=== PATIENT | female | born 1965 | race Caucasian/White ===

== ENCOUNTER 2018-11-06 20:21 | Emergency (ER) | payer OTHER ==
--- NOTE | 2018-11-06 20:47 | PDOC ---
Rapid Medical Evaluation Chief Complaint: Pain Time Seen by Provider: 11/06/18 20:44 Medical Evaluation: Allergies Allergy/AdvReac Type Severity Reaction Status Date / Time No Known Drug Allergies Allergy Verified 06/19/16 16:25 Fish Containing Products AdvReac Intermediate Rash Verified 06/19/16 16:25 11/06/18 20:45 I performed a brief in person evaluation. CC: abdominal pain HPI: Pt is a 53 Yo female with a hx of hiatal hernia and now she has abdominal pain. Pt has had a cholecystectomy. Pt denies N/V however admits to excessive "burping." Pt admits to normal BM PE: Skin: Clear Lungs: Clear Heart: RRR Abd: Pain upon palpation to the epigastric area. MS: Moves all extremities without difficulty Neuro: Alert Psych: Appropriate affect Abdominal protocol Pt will go to [facility] for further evaluation. Discharge Disposition - Diagnosis Abdominal pain Qualifiers: Abdominal location: generalized Qualified Code(s): R10.84 - Generalized abdominal pain - Referrals - Patient Instructions - Post Discharge Activity
[2018-11-06 20:51] VITALS: BP 151/82; PULSE 69; TEMP 98.1; BMI 30.2
[2018-11-06 21:31] LABS: BASO % 0.6 % (0-2.0); EOS % 2.3 % (0-4.5); HEMATOCRIT 40.1 % (32.4-45.2); HEMOGLOBIN 13.9 GM/dL (10.7-15.3); LYMPH % 46.9 % (8-40); MCH 29.8 pg (25.7-33.7); MCHC 34.7 g/dl (32.0-36.0); MEAN CELL VOLUME 85.8 fl (80-96); MEAN PLT VOLUME 7.7 fl (7.5-11.1); MONO % 9.7 % (3.8-10.2); NEUT % 40.5 % (42.8-82.8); PLATELET COUNT 344 K/MM3 (134-434); RBC 4.67 M/mm3 (3.60-5.2); RDW 12.7 % (11.6-15.6)
[2018-11-06] MEDS ORDERED: MAG HYDROX/AL HYDROX/SIMETH 30 ML UNIT-DOSE CUP PO ONE (21:36)
[2018-11-06] MEDS ORDERED: FAMOTIDINE 20 MG/50 ML IVPB 20 MG/50 ML MG IVPB ONE (21:36)
[2018-11-06 21:42] LABS: ALBUMIN 4.3 g/dl (3.4-5.0); ALK PHOS 122 U/L (45-117); ANION GAP 7 MMOL/L (8-16); BILIRUBIN,TOTAL 0.2 mg/dL (0.2-1); BLOOD UREA NITROGEN 11 mg/dL (7-18); CHLORIDE 106 mmol/L (98-107); CO2 28 mmol/L (21-32); CREATININE 0.8 mg/dL (0.55-1.3); GLUCOSE,RANDOM 105 mg/dL (74-106); LIPASE 307 U/L (73-393); SGOT/AST 17 U/L (15-37); SGPT/ALT 24 U/L (13-61); SODIUM 141 mmol/L (136-145); TOT PROT 7.6 g/dl (6.4-8.2)
--- NOTE | 2018-11-06 21:54 | PDOC ---
History of Present Illness - General History Source: Patient Exam Limitations: No Limitations - History of Present Illness Initial Comments: 11/06/18 22:17 The patient is a 53 year old female, with a significant past medical history of GERD, hiatal hernia, HTN, anemia, and kidney stones, who presents to the emergency department with, 6 days of intermittent epigastric discomfort radiating to just under her left breast with associated nausea without emesis. She notes similar episodes in the past due to her GERD. She denies recent fevers, chills, headache or dizziness. She denies recent vomit , diarrhea or constipation. She denies recent dysuria, frequency, urgency or hematuria. She denies recent chest pain or shortness of breath. Allergies: Fish Past surgical history: Cholecystectomy and tonsillectomy Social history: Occasional alcohol usage. Nonsmoker. Denies recreational drug use. Primary Care Physician: Dr. Pardo <Jona Diamond - Last Filed: 11/06/18 22:17> <Shyla Rousseau - Last Filed: 11/06/18 23:42> - General Chief Complaint: Pain Stated Complaint: ABDOMINAL PAIN Time Seen by Provider: 11/06/18 20:44 Past History <Jona Diamond - Last Filed: 11/06/18 22:17> - Past Medical History Anemia: Yes Asthma: Yes Cancer: No Cardiac Disorders: No CVA: No COPD: No CHF: No Dementia: No Diabetes: No GI Disorders: No Disorders: Yes (hx kidney stones, hernia) HTN: Yes Hypercholesterolemia: No Liver Disease: No Seizures: No Thyroid Disease: No - Surgical History Abdominal Surgery: No Appendectomy: No Cardiac Surgery: No Cholecystectomy: Yes GI Surgery: (Bladder Sx. April) Lung Surgery: No Neurologic Surgery: No Orthopedic Surgery: No - Suicide/Smoking/Psychosocial Hx Smoking History: Never smoked Have you smoked in the past 12 months: No Information on smoking cessation initiated: No Hx Alcohol Use: No Drug/Substance Use Hx: No Substance Use Type: None Hx Substance Use Treatment: No <Shyla Rousseau - Last Filed: 11/06/18 23:42> - Past Medical History Allergies/Adverse Reactions: Allergies Allergy/AdvReac Type Severity Reaction Status Date / Time No Known Drug Allergies Allergy Verified 11/06/18 20:51 Fish Containing Products AdvReac Intermediate Rash Verified 11/06/18 20:51 Home Medications: Ambulatory Orders Losartan Potassium [Cozaar -] 50 mg PO DAILY 05/10/16 Metoprolol Tartrate 25 mg PO BID 05/10/16 Acetaminophen [Tylenol] 650 mg PO Q4H PRN 06/19/16 Review of Systems - Review of Systems Able to Perform ROS?: Yes Comments:: 11/06/18 22:18 CONSTITUTIONAL: Absent: fever, no chills, no fatigue EYES: Absent: visual changes ENT: Absent: ear pain, no sore throat CARDIOVASCULAR: Absent: chest pain, no palpitations RESPIRATORY: Absent: cough, no SOB GI: Present: Nausea. Epigastric pain. Absent: no vomiting, no constipation, no diarrhea GENITOURINARY: Absent: dysuria, no frequency, no hematuria MUSKULOSKELETAL: Absent: back pain, no arthralgia, no myalgia SKIN: Absent: rash NEURO: Absent: headache All Other Systems: Reviewed and Negative <Jona Diamond - Last Filed: 11/06/18 22:17> *Physical Exam - Vital Signs Last Vital Signs Temp Pulse Resp BP Pulse Ox 98.1 F 69 18 151/82 100 11/06/18 20:46 11/06/18 20:46 11/06/18 20:46 11/06/18 20:46 11/06/18 20:46 - Physical Exam Comments: 11/06/18 22:18 GENERAL: Well-appearing, well-nourished. No apparent distress. HEENT: Normocephalic, atraumatic. PERRL, EOM intact. CARDIOVASCULAR: Normal S1, S2. Regular rate and rhythm. PULMONARY: Clear to auscultation bilaterally. ABDOMEN: Soft, non-distended, non-tender. EXTREMITIES: Normal ROM in all four extremities. No gross deformities. SKIN: Warm, dry. No rash NEUROLOGICAL: No focal neurological deficits. <Jona Diamond - Last Filed: 11/06/18 22:17> - Vital Signs Last Vital Signs Temp Pulse Resp BP Pulse Ox 98.1 F 69 18 151/82 100 11/06/18 20:46 11/06/18 20:46 11/06/18 20:46 11/06/18 20:46 11/06/18 20:46 <Shyla Rousseau - Last Filed: 11/06/18 23:42> Moderate Sedation - Procedure Monitoring Vital Signs: Procedure Monitoring Vital Signs Temperature 98.1 F 11/06/18 20:46 Pulse Rate 69 11/06/18 20:46 Respiratory Rate 18 11/06/18 20:46 Blood Pressure 151/82 11/06/18 20:46 O2 Sat by Pulse Oximetry (%) 100 11/06/18 20:46 <Jona Diamond - Last Filed: 11/06/18 22:17> - Procedure Monitoring Vital Signs: Procedure Monitoring Vital Signs Temperature 98.1 F 11/06/18 20:46 Pulse Rate 69 11/06/18 20:46 Respiratory Rate 18 11/06/18 20:46 Blood Pressure 151/82 11/06/18 20:46 O2 Sat by Pulse Oximetry (%) 100 11/06/18 20:46 <Shyla Rousseau - Last Filed: 11/06/18 23:42> ED Treatment Course - LABORATORY CBC & Chemistry Diagram: 11/06/18 21:11 11/06/18 21:11 - ADDITIONAL ORDERS Additional order review: Laboratory Results 11/06/18 11/06/18 21:11 21:11 Sodium 141 Potassium 4.0 Chloride 106 Carbon Dioxide 28 Anion Gap 7 L BUN 11 Creatinine 0.8 Creat Clearance w eGFR > 60 Random Glucose 105 Calcium 9.0 Total Bilirubin 0.2 AST 17 ALT 24 Alkaline Phosphatase 122 H Creatine Kinase 132 Troponin I < 0.02 Total Protein 7.6 Albumin 4.3 Lipase 307 11/06/18 21:11 RBC 4.67 MCV 85.8 MCHC 34.7 RDW 12.7 MPV 7.7 Neutrophils % 40.5 L Lymphocytes % 46.9 H Monocytes % 9.7 Eosinophils % 2.3 Basophils % 0.6 <Jona Diamond - Last Filed: 11/06/18 22:17> - LABORATORY CBC & Chemistry Diagram: 11/06/18 21:11 11/06/18 21:11 - ADDITIONAL ORDERS Additional order review: Laboratory Results 11/06/18 11/06/18 21:11 21:11 Sodium 141 Potassium 4.0 Chloride 106 Carbon Dioxide 28 Anion Gap 7 L BUN 11 Creatinine 0.8 Creat Clearance w eGFR > 60 Random Glucose 105 Calcium 9.0 Total Bilirubin 0.2 AST 17 ALT 24 Alkaline Phosphatase 122 H Creatine Kinase 132 Total Protein 7.6 Albumin 4.3 Lipase 307 11/06/18 21:11 RBC 4.67 MCV 85.8 MCHC 34.7 RDW 12.7 MPV 7.7 Neutrophils % 40.5 L Lymphocytes % 46.9 H Monocytes % 9.7 Eosinophils % 2.3 Basophils % 0.6 <Shyla Rousseau - Last Filed: 11/06/18 23:42> *DC/Admit/Observation/Transfer - Attestations Scribe Attestion: 11/06/18 22:18 Documentation prepared by Jona Diamond, acting as chief medical director for Shyla Rousseau MD. <Jona Diamond - Last Filed: 11/06/18 22:17> <Shyla Rousseau - Last Filed: 11/06/18 23:42> Diagnosis at time of Disposition: GERD (gastroesophageal reflux disease) Qualifiers: Esophagitis presence: without esophagitis Qualified Code(s): K21.9 - Gastro- esophageal reflux disease without esophagitis - Discharge Dispostion Disposition: HOME Condition at time of disposition: Stable - Referrals Referrals: Oanh Pardo MD [Primary Care Provider] - - Patient Instructions Printed Discharge Instructions: DI for Gastroesophageal Reflux Disease (GERD) Additional Instructions: please keep your appointment with your choke reamer - Post Discharge Activity
--- NOTE | 2018-11-07 13:08 | EKG ---
Test Reason : Blood Pressure : / mmHG Vent. Rate : 070 BPM Atrial Rate : 070 BPM P-R Int : 158 ms QRS Dur : 070 ms QT Int : 374 ms P-R-T Axes : 055 036 057 degrees QTc Int : 403 ms NORMAL SINUS RHYTHM NORMAL ECG WHEN COMPARED WITH ECG OF 19-JUN-2016 21:04, NO SIGNIFICANT CHANGE WAS FOUND Confirmed by DASHA LERMA MD ([id number]) on 11/07/2018 1:08:28 PM Referred By: Confirmed By:DASHA LERMA MD
== END 2018-11-07 00:10 | disposition home or self-care (01) ==
LOC: JER 20:21
PROC: 3E033GC Introduction of Other Therapeutic Substance into Peripheral Vein, Percutaneous Approach (ICD-10-PCS; principal; 2018-11-06)
DX: K21.9 Gastro-esophageal reflux disease without esophagitis (principal); K44.9 Diaphragmatic hernia without obstruction or gangrene; D64.9 Anemia, unspecified
CPT/HCPCS: 36415; 80053; 82550; 83690; 84484; 85025; 93005; 93010; 99283-25

== ENCOUNTER 2019-02-24 09:01 | Observation (INO) | payer OTHER ==
--- NOTE | 2019-02-24 09:15 | PDOC ---
Attending Attestation - Resident Resident Name: Kumar Nava - ED Attending Attestation I have performed the following: I have examined & evaluated the patient, The case was reviewed & discussed with the resident, I agree w/resident's findings & plan, Exceptions are as noted - HPI HPI: 53 yo F history HTN, asthma presents with weakness. Acute onset as she was getting into the shower this morning. She felt numbness in her arms, difficulty doing anything due to weakness, extreme fatigue. Also reports SOB. No prior history of CAD. - Physicial Exam PE: GENERAL: Awake, alert, and fully oriented. Appears mildly anxious, mild pallor HEAD: No signs of trauma EYES: PERRLA, EOMI, sclera anicteric, conjunctiva clear ENT: Auricles normal inspection, hearing grossly normal, nares patent, oropharynx clear without exudates. Moist mucosa NECK: Normal ROM, supple, no lymphadenopathy, JVD, or masses LUNGS: Breath sounds equal, clear to auscultation bilaterally. No wheezes, and no crackles HEART: Regular rate and rhythm, normal S1 and S2, no murmurs, rubs or gallops ABDOMEN: Soft, nontender, normoactive bowel sounds. No guarding, no rebound. No masses EXTREMITIES: Normal range of motion, no edema. No clubbing or cyanosis. No cords, erythema, or tenderness NEUROLOGICAL: Cranial nerves II through XII grossly intact. Normal speech, walking with assistance. Motor and sensation intact SKIN: Warm, Dry, normal turgor, no rashes or lesions noted. - Medical Decision Making Initial presentation was concerning for ACS, poss impending syncope. Also c/o weakness in both arms, and with her high BP, CTH was obtained. Workup negative so far. In light of recent intermittent chest pressure and her risk factors, will admit for cardio w/u.
--- NOTE | 2019-02-24 09:21 | PDOC ---
History of Present Illness - History of Present Illness Initial Comments: The pt is a 53F w/ a history of HTN and asthma who presents for chest pressure, generalized weakness, and RUE pain. Reports approximately 1 week increased weakness but worse this morning. Notes chest pressure this morning as well which she still has now at rest. She reports that her symptoms worsened this morning while taking a shower. She denies these symptoms feeling similar to previous asthma exacerbations. Denies fevers/chills, vision changes, changes in sensation, abdominal pain, N/V/ C/D, dysuria, hematuria 02/24/19 09:19 - General Chief Complaint: Weakness Stated Complaint: POSSIBLE STROKE Time Seen by Provider: 02/24/19 09:12 Past History - Past Medical History Anemia: Yes Asthma: Yes Cancer: No Cardiac Disorders: No CVA: No COPD: No CHF: No Dementia: No Diabetes: No GI Disorders: No Disorders: Yes (hx kidney stones, hernia) HTN: Yes Hypercholesterolemia: No Liver Disease: No Seizures: No Thyroid Disease: No - Surgical History Abdominal Surgery: No Appendectomy: No Cardiac Surgery: No Cholecystectomy: Yes GI Surgery: (Bladder Sx. April) Lung Surgery: No Neurologic Surgery: No Orthopedic Surgery: No - Suicide/Smoking/Psychosocial Hx Smoking History: Never smoked Have you smoked in the past 12 months: No Hx Alcohol Use: No Drug/Substance Use Hx: No Substance Use Type: None Hx Substance Use Treatment: No - Past Medical History Allergies/Adverse Reactions: Allergies Allergy/AdvReac Type Severity Reaction Status Date / Time No Known Drug Allergies Allergy Verified 02/24/19 09:23 Fish Containing Products AdvReac Intermediate Rash Verified 02/24/19 09:23 Home Medications: Ambulatory Orders Albuterol Sulfate Inhaler - [Ventolin HFA Inhaler -] 1 - 2 puff IH Q6H PRN 02/24 Chlorthalidone 1 tab PO DAILY 02/24/19 Losartan Potassium 1 tab PO DAILY 02/24/19 Metoprolol Tartrate 1 tab PO BID 02/24/19 Review of Systems - Review of Systems Able to Perform ROS?: Yes Comments:: GENERAL/CONSTITUTIONAL: No fever or chills. No weakness._ HEAD, EYES, EARS, NOSE AND THROAT: No change in vision. No ear pain or discharge. No sore throat._ CARDIOVASCULAR: No chest pain or shortness of breath_ RESPIRATORY: Denies cough, hemoptysis_ GASTROINTESTINAL: No nausea, vomiting, diarrhea or constipation._ GENITOURINARY: No dysuria, frequency, or change in urination._ MUSCULOSKELETAL: No joint or muscle swelling or pain. No neck or back pain._ SKIN: No rash_ NEUROLOGIC: No headache, vertigo, loss of consciousness, or change in strength/ sensation._ ENDOCRINE: No increased thirst. No abnormal weight change_ HEMATOLOGIC/LYMPHATIC: No anemia, easy bleeding, or history of blood clots._ ALLERGIC/IMMUNOLOGIC: No hives or skin allergy._ 02/24/19 09:48 Is the patient limited [place]an proficient: No ED Treatment Course - RADIOLOGY Radiology Studies Ordered: Category Date Time Status CHEST X-RAY PORTABLE* [RAD] Stat Radiology 02/24/19 09:14 Ordered *DC/Admit/Observation/Transfer - Referrals Referrals: Oanh Pardo MD [Primary Care Provider] - - Patient Instructions - Post Discharge Activity
[2019-02-24 09:22] VITALS: BMI 34.7
[2019-02-24 10:02] LABS: BASO % 0.6 % (0-2.0); EOS % 0.3 % (0-4.5); HEMATOCRIT 46.4 % (32.4-45.2); HEMOGLOBIN 15.8 GM/dL (10.7-15.3); LYMPH % 33.8 % (8-40); MCH 29.5 pg (25.7-33.7); MCHC 34.1 g/dl (32.0-36.0); MEAN CELL VOLUME 86.6 fl (80-96); MEAN PLT VOLUME 8.2 fl (7.5-11.1); NEUT % 47.3 % (42.8-82.8); PLATELET COUNT 414 K/MM3 (134-434); RBC 5.36 M/mm3 (3.60-5.2); RDW 12.7 % (11.6-15.6); WHITE BLOOD COUNT 6.2 K/mm3 (4.0-10.0)
[2019-02-24 10:23] LABS: INR 1.03 (0.83-1.09); PROTHROMBIN TIME (PATIENT) 12.1 SEC (9.7-13.0)
[2019-02-24 10:25] LABS: ACTIVATED PTT 44.1 SECONDS (25.2-36.5)
[2019-02-24 10:36] LABS: ALBUMIN 4.4 g/dl (3.4-5.0); ALK PHOS 123 U/L (45-117); ANION GAP 8 MMOL/L (8-16); BILIRUBIN,TOTAL 0.5 mg/dL (0.2-1); BLOOD UREA NITROGEN 16 mg/dL (7-18); CHLORIDE 98 mmol/L (98-107); CO2 26 mmol/L (21-32); CREATININE 0.9 mg/dL (0.55-1.3); GLUCOSE,RANDOM 106 mg/dL (74-106); POTASSIUM 3.9 mmol/L (3.5-5.1); SGOT/AST 24 U/L (15-37); SGPT/ALT 30 U/L (13-61); SODIUM 132 mmol/L (136-145); TOT PROT 8.6 g/dl (6.4-8.2)
--- NOTE | 2019-02-24 11:52 | HP ---
Admitting History and Physical - Admission Chief Complaint: chest pains and weakness History of Present Illness: The pt is a 53F w/ a history of HTN and asthma who presents for chest pressure, generalized weakness, and RUE pain. Reports approximately 1 week increased weakness but worse this morning. Notes chest pressure this morning as well which she still has now at rest. She reports that her symptoms worsened this morning while taking a shower. She denies these symptoms feeling similar to previous asthma exacerbations. 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 History of Recent Travel: No Home Medications - Allergies Allergies/Adverse Reactions: Allergies Allergy/AdvReac Type Severity Reaction Status Date / Time No Known Drug Allergies Allergy Verified 02/24/19 09:23 Fish Containing Products AdvReac Intermediate Rash Verified 02/24/19 09:23 - Home Medications Home Medications: Ambulatory Orders Albuterol Sulfate Inhaler - [Ventolin HFA Inhaler -] 1 - 2 puff IH Q6H PRN 02/24 Chlorthalidone 1 tab PO DAILY 02/24/19 Losartan Potassium 1 tab PO DAILY 02/24/19 Metoprolol Tartrate 1 tab PO BID 02/24/19 Family Disease History - Family Disease History Family Disease History: Heart Disease: Father ( 41: [place]), Other: Mother ( alive 69 RA) Review of Systems - Review of Systems Constitutional: reports: No Symptoms Eyes: reports: No Symptoms HENT: reports: No Symptoms Neck: reports: No Symptoms Cardiovascular: reports: Chest Pain Respiratory: reports: Cough Genitourinary: reports: No Symptoms Breasts: reports: No Symptoms Reported Musculoskeletal: reports: No Symptoms Neurological: reports: No Symptoms Endocrine: reports: No Symptoms Hematology/Lymphatic: reports: No Symptoms Psychiatric: reports: No Symptoms Physical Examination Vital Signs: Vital Signs Temperature 98.3 F 02/24/19 09:05 Pulse Rate 95 H 02/24/19 10:58 Respiratory Rate 17 02/24/19 10:58 Blood Pressure 123/73 02/24/19 10:58 O2 Sat by Pulse Oximetry (%) 98 04/28/19 10:58 Constitutional: Yes: Well Nourished Eyes: Yes: WNL HENT: Yes: WNL Neck: Yes: WNL Cardiovascular: Yes: Regular Rate and Rhythm, Tachycardia Respiratory: Yes: WNL, Regular, CTA Bilaterally Gastrointestinal: Yes: Normal Bowel Sounds Musculoskeletal: Yes: WNL Extremities: Yes: WNL Integumentary: Yes: WNL Wound/Incision: Yes: Excoriated Neurological: Yes: WNL ...Motor Strength: WNL Psychiatric: Yes: WNL Labs: CBC, BMP 02/24/19 09:35 02/24/19 09:35 Imaging - Results Chest X-ray: Image Reviewed Cat Scan: Report Reviewed (normal brain ct) Problem List - Problems (1) Chest pain Assessment/Plan: will do stress test am and will control blood pressure Code(s): R07.9 - CHEST PAIN, UNSPECIFIED Qualifiers: Qualified Code(s): I25.9 - Chronic ischemic heart disease, unspecified (2) Hypertension Assessment/Plan: will do r/o acs w/u and will do stress test am Code(s): I10 - ESSENTIAL (PRIMARY) HYPERTENSION
[2019-02-24] MEDS ORDERED: ASPIRIN 81 MG CHEWABLE TABLETS ONE (12:08)
[2019-02-24] MEDS ORDERED: LOSARTAN POTASSIUM 50 MG TABLET (FP) ONE (12:08)
[2019-02-24] MEDS ORDERED: METOPROLOL TARTRATE 25 MG TABLET (FP) ONE ×2 (12:09→22:39)
[2019-02-24] MEDS: METOPROLOL TARTRATE 25 MG TABLET (FP) PO SCH ×2 (12:10→22:40)
[2019-02-24] MEDS: ASPIRIN 81 MG CHEWABLE TABLETS PO SCH (12:10)
[2019-02-24] MEDS: LOSARTAN POTASSIUM 50 MG TABLET (FP) PO SCH (12:10)
[2019-02-24] MEDS ORDERED: SODIUM CHLORIDE 0.9% 500 ML INFUS.BAG IV ONE (13:11)
--- NOTE | 2019-02-24 15:21 | EKG ---
Test Reason : Blood Pressure : / mmHG Vent. Rate : 109 BPM Atrial Rate : 109 BPM P-R Int : 138 ms QRS Dur : 078 ms QT Int : 330 ms P-R-T Axes : 057 007 060 degrees QTc Int : 444 ms SINUS TACHYCARDIA OTHERWISE NORMAL ECG WHEN COMPARED WITH ECG OF 06-NOV-2018 20:56, VENT. RATE HAS INCREASED BY 39 BPM Confirmed by BARTOLOME TRONCOSO MD ([id number]) on 02/24/2019 3:20:52 PM Referred By: Confirmed By:BARTOLOME TRONCOSO MD
[2019-02-25] MEDS ORDERED: LOSARTAN POTASSIUM 50 MG TABLET (FP) ONE (07:54)
[2019-02-25] MEDS: LOSARTAN POTASSIUM 50 MG TABLET (FP) PO SCH (09:00)
[2019-02-25 14:12] VITALS: TEMP 98.8
[2019-02-25] MEDS: METOPROLOL TARTRATE 25 MG TABLET (FP) PO SCH (14:16)
[2019-02-25] MEDS: ASPIRIN 81 MG CHEWABLE TABLETS PO SCH (14:16)
--- NOTE | 2019-02-25 17:12 | DS ---
Physical Examination Vital Signs: Vital Signs Temperature 98.8 F 02/25/19 14:00 Pulse Rate 80 02/25/19 14:00 Respiratory Rate 18 02/25/19 14:00 Blood Pressure 120/70 02/25/19 14:00 O2 Sat by Pulse Oximetry (%) 99 02/25/19 14:00 Constitutional: Yes: No Distress, Calm Eyes: Yes: EOM Intact HENT: Yes: Normocephalic Neck: Yes: Trachea Midline Cardiovascular: Yes: Regular Rate and Rhythm Respiratory: Yes: CTA Bilaterally Gastrointestinal: Yes: Normal Bowel Sounds, Soft Edema: No Peripheral Pulses WNL: Yes Neurological: Yes: WNL ...Motor Strength: WNL Psychiatric: Yes: WNL Labs: CBC, BMP 02/24/19 09:35 02/24/19 09:35 Discharge Summary Reason For Visit: ACUTE CORONARY SUNDROME,HTN Current Active Problems Chest pain (Acute) Hypertension (Acute) Hospital Course: admitted for atypical chest pain after changing her usual bp medications, her ekg, serial cardiac enzymes, chest xray and nuclear stress test were normal. resume prior bp meds; ,metoprolol and f/up with me in the office tomorrow Condition: Good - Instructions Diet, Activity, Other Instructions: dr sarah tomorrow at 3pm Disposition: HOME - Home Medications Comprehensive Discharge Medication List: Ambulatory Orders Albuterol Sulfate Inhaler - [Ventolin HFA Inhaler -] 1 - 2 puff IH Q6H PRN 02/24 Metoprolol Tartrate 1 tab PO BID 02/24/19 Losartan Potassium [Cozaar -] 50 mg PO DAILY tablet 02/25/19
[2019-02-25 17:13] VITALS: BP 139/80; PULSE 86
== END 2019-02-25 17:32 | disposition home or self-care (01) ==
LOC: JER 09:01 → JERBED 11:06
PROVIDERS: ADMIT Internal Medicine; ATTEND Internal Medicine
PROC: 3E0337Z Introduction of Electrolytic and Water Balance Substance into Peripheral Vein, Percutaneous Approach (ICD-10-PCS; principal; 2019-02-24)
DX: R07.9 Chest pain, unspecified (principal); I10 Essential (primary) hypertension; J45.909 Unspecified asthma, uncomplicated
CPT/HCPCS: 36415; 70450-TC; 71045-TC-FY; 78452-TC; 80053; 82550; 83880; 84484; 85025; 85610; 85730; 93005; 93010; 93017; 99285-25; A9502; G0378

== ENCOUNTER 2024-03-21 04:27 | Emergency (ER) | payer OTHER ==
[2024-03-21 04:38] VITALS: TEMP 98; BMI 36.3
[2024-03-21 05:32] LABS: INR 0.94 (0.83-1.09); PROTHROMBIN TIME (PATIENT) 10.6 SEC (9.7-13.0)
[2024-03-21 05:34] LABS: ACTIVATED PTT 34.5 SECONDS (25.2-36.5)
[2024-03-21] MEDS ORDERED: ACETAMINOPHEN INJECTION 100 ML IVPB ONE (05:41)
[2024-03-21] MEDS: LACTATED RINGERS SOLUTION 1000 ML INFUS.BAG IV ONE (05:42)
[2024-03-21] MEDS ORDERED: METOCLOPRAMIDE HCL INJECTION 10 MG/2 ML VIAL ONE (05:43)
[2024-03-21 05:44] LABS: POTASSIUM 3.7 mmol/L (3.5-5.1)
[2024-03-21 05:45] LABS: MAGNESIUM 2.2 mg/dL (1.8-2.4)
[2024-03-21 05:46] LABS: ALBUMIN 3.9 g/dl (3.4-5.0); CALCIUM 9.5 mg/dL (8.5-10.1)
[2024-03-21] MEDS: ACETAMINOPHEN 1000 MG/100 ML BAG IVPB ONE (05:46)
[2024-03-21] MEDS: METOCLOPRAMIDE HCL INJECTION 10 MG/2 ML VIAL IVPUSH ONE (05:46)
[2024-03-21 05:49] LABS: CREATININE 0.8 mg/dL (0.55-1.3)
[2024-03-21 05:51] LABS: BILIRUBIN,TOTAL 0.3 mg/dL (0.2-1); TOT PROT 7.3 g/dl (6.4-8.2)
[2024-03-21 05:54] LABS: BASO % 1.2 % (0-2.0); EOS % 1.3 % (0-4.5); HEMATOCRIT 38.9 % (32.4-45.2); HEMOGLOBIN 13.3 GM/dL (10.7-15.3); LYMPH % 30.8 % (8-40); MCH 29.5 pg (25.7-33.7); MCHC 34.1 g/dl (32.0-36.0); MEAN CELL VOLUME 86.3 fl (80-96); MONO % 9.1 % (3.8-10.2); NEUT % 57.6 % (42.8-82.8); PLATELET COUNT 376 10^3/uL (134-434); RBC 4.51 M/mm3 (3.60-5.2); RDW 12.6 % (11.6-15.6); WHITE BLOOD COUNT 6.4 K/mm3 (4.0-10.0)
[2024-03-21 08:34] VITALS: BP 158/71; PULSE 72; RESP 20
== END 2024-03-21 09:18 | disposition home or self-care (01) ==
LOC: JER 04:27
PROC: 3E033NZ Introduction of Analgesics, Hypnotics, Sedatives into Peripheral Vein, Percutaneous Approach (ICD-10-PCS; principal; 2024-03-21)
PROC: 3E033GC Introduction of Other Therapeutic Substance into Peripheral Vein, Percutaneous Approach (ICD-10-PCS; 2024-03-21)
DX: R51.9 Headache, unspecified (principal); R00.2 Palpitations; R07.89 Other chest pain; R55 Syncope and collapse; R42 Dizziness and giddiness; R53.1 Weakness; R53.81 Other malaise
CPT/HCPCS: 36415; 71046-TC-FY; 80053; 83735; 84443; 84484; 85025; 85610; 85730; 93005; 93010; 99285-25; J0131